=== PATIENT | male | born 1970 | race Caucasian/White ===

== ENCOUNTER 2021-06-21 15:03 | Emergency (ER) | payer OTHER ==
[~2021-06-21] VITALS: Ht 182.9 cm; Wt 95.3 kg
[~2021-06-21 15:03] MED LIST: IBUPROFEN800 MG PO; ROBAXIN750 MG PO
[2021-06-21 15:58] LABS: BASOPHIL 0.8 % (0-2); EOSINOPHIL 14.1 % (0-5); HCT 39.9 % (42.0-52.0); HGB 13.7 g/dl (13.2-18.0); LYMPHOCYTE 12.8 % (15-48); MCH 30.2 pg (25.0-31.0); MCHC 34.3 g/dL (32.0-36.0); MCV 88.1 fL (78.0-100.0); MONOCYTE 5.9 % (0-12); MPV 9.7 fL (6.0-9.5); NEUTROPHIL 66.2 % (41-80); NRBC 0; PLT 295 K/uL (150-400); RBC 4.53 M/uL (4.70-6.00); RDW 12.8 % (11.5-14.0); WBC 10.8 K/uL (4.0-10.5)
[2021-06-21 16:15] LABS: ALBUMIN 4.2 g/dL (3.4-5.0); BILIRUBIN - TOTAL 1.3 mg/dL (0.2-1.0); BUN/CREAT RATIO (CALC) 17.1 RATIO; CREATININE 1.05 mg/dL (0.67-1.17); GLOBULIN (CALCULATION) 3.1 g/dL; POTASSIUM 3.7 mmol/L (3.5-5.1); TOTAL PROTEIN 7.3 g/dL (6.4-8.2)
[2021-06-21 17:47] LABS: BILIRUBIN NEGATIVE (NEGATIVE); BLOOD NEGATIVE Ery/uL (NEGATIVE); CLARITY CLEAR (CLEAR); COLOR YELLOW (YELLOW); GLUCOSE (U) NORMAL (NORMAL); LEUKOCYTES NEGATIVE Leu/uL (NEGATIVE); NITRITE NEGATIVE (NEGATIVE); PROTEIN NEGATIVE (NEGATIVE)
[2021-06-21 17:54] LABS: AMPHETAMINES POSITIVE (NEGATIVE); BARBITURATES NEGATIVE (NEGATIVE); ECSTASY (MDMA) NEGATIVE (NEGATIVE); MARIJUANA (THC) NEGATIVE (NEGATIVE); METHADONE NEGATIVE (NEGATIVE); OPIATES NEGATIVE (NEGATIVE); OXYCODONE NEGATIVE (NEGATIVE)
== END 2021-06-21 18:12 ==
LOC: FER 15:03
PROVIDERS: Physician Assistant
DX: F15.10 Other stimulant abuse, uncomplicated (principal); F14.10 Cocaine abuse, uncomplicated; Z28.310 Unvaccinated for COVID-19; Z87.891 Personal history of nicotine dependence
CPT/HCPCS: 36415; 80053; 80305; 81003; 85025; 99283